=== PATIENT | female | born 1980 | race African-American/Black ===

== ENCOUNTER 2017-11-25 17:12 | Emergency (ER) | payer MEDICAID, OTHER | END 2017-11-25 17:27 | disposition home or self-care (01) | LOC: SCSER 17:12 | DX: K04.7 Periapical abscess without sinus (principal) | CPT/HCPCS: 99282 ==

== ENCOUNTER 2017-12-18 12:27 | Emergency (ER) | payer OTHER ==
[2017-12-18] MEDS ORDERED: Bicillin LA 1.2 MILLION UNITS/2 ML SYRINGE ONE (13:02)
[2017-12-18] MEDS ORDERED: HYDROcodone/Acetaminophen 5/325 mg Tablet ONE (13:04)
== END 2017-12-18 13:50 | disposition home or self-care (01) ==
LOC: SCSER 12:27
DX: K04.7 Periapical abscess without sinus (principal)
CPT/HCPCS: 96372; J0561

== ENCOUNTER 2018-01-25 10:43 | Outpatient (CLI) | payer OTHER ==
--- NOTE | 2018-01-25 12:17 | RAD ---
LEFT ANKLE 3 VIEWS: Date: 01/25/18 HISTORY: Left ankle pain, contusion. FINDINGS/IMPRESSION: The ankle mortise is maintained. No acute fracture or dislocation identified. POS: [facility]
== END 2018-01-25 10:44 | disposition home or self-care (01) ==
LOC: SCSRAD 10:43
PROVIDERS: ATTEND Podiatrist Foot & Ankle Surgery
DX: S90.02XA Contusion of left ankle, initial encounter (principal)

== ENCOUNTER 2018-06-23 11:02 | Emergency (ER) | payer OTHER, SELFPAY | END 2018-06-23 11:18 | disposition home or self-care (01) | LOC: SCSER 11:02 | DX: J02.9 Acute pharyngitis, unspecified (principal) | CPT/HCPCS: 99282 ==

== ENCOUNTER 2018-11-14 20:20 | Emergency (ER) | payer OTHER | END 2018-11-14 21:58 | disposition home or self-care (01) | LOC: ERS 20:20 | DX: M54.16 Radiculopathy, lumbar region (principal) | CPT/HCPCS: 99283 ==

== ENCOUNTER 2018-12-04 19:46 | Emergency (ER) | payer OTHER ==
--- NOTE | 2018-12-04 21:06 | RAD ---
LEFT ELBOW FOUR VIEWS: Indication: Left elbow pain after fall. Comparison: None. FINDINGS: No joint capsular distention is evident. Radiocapitellar alignment is normal. Soft tissues are normal appearing. IMPRESSION: Radiographically normal left elbow. No definite acute osseous abnormality demonstrated. POS: [facility]
== END 2018-12-04 20:43 | disposition home or self-care (01) ==
LOC: SCSER 19:46
DX: S50.02XA Contusion of left elbow, initial encounter (principal); W01.0XXA Fall on same level from slipping, tripping and stumbling without subsequent striking against object, initial encounter

== ENCOUNTER 2020-11-22 15:03 | Outpatient (CLI) | payer BC ==
--- NOTE | 2020-11-22 16:01 | RAD ---
2 views of the chest: 11/22/2020 COMPARISON: None available HISTORY: Right-sided chest pain FINDINGS: No pneumothorax or pleural fluid. No focal consolidation or alveolar edema. Heart and media stinal contours are unremarkable IMPRESSION: No acute findings.
== END 2020-11-22 15:04 | disposition home or self-care (01) ==
LOC: BICRAD 15:03
PROVIDERS: ATTEND Physician Assistant
DX: R07.81 Pleurodynia (principal)
CPT/HCPCS: 71046

== ENCOUNTER 2020-12-06 09:38 | Outpatient (CLI) | payer BC | END 2020-12-06 09:39 | disposition home or self-care (01) | LOC: NM 09:38 | PROVIDERS: ATTEND Physician Assistant | DX: R10.11 Right upper quadrant pain (principal) | CPT/HCPCS: 78227; A9537 ==